=== PATIENT | female | born 1995 | race Asian ===

== ENCOUNTER 2021-12-19 02:58 | Emergency (ER) | payer MEDICAID ==
[~2021-12-19] VITALS: Ht 160 cm; Wt 90.9 kg
[2021-12-19] MEDS ORDERED: FLUT1BLS8 IH (03:11)
[2021-12-19] MEDS ORDERED: PHENAZOPYRIDINE HCL 100 MG TABLET PO ONE (03:30)
[2021-12-19] MEDS ORDERED: SULFAMETHOX/TRIMETH DS 800-160 MG/TABLET PO ONE (03:30)
[2021-12-19] MEDS ORDERED: SULF-261 PO (03:33)
[2021-12-19] MEDS ORDERED: PHEN-1103 PO (03:33)
== END 2021-12-19 04:03 | disposition home or self-care (01) ==
LOC: EMS 02:59
DX: N39.0 Urinary tract infection, site not specified (principal); F15.10 Other stimulant abuse, uncomplicated; J45.909 Unspecified asthma, uncomplicated; F17.210 Nicotine dependence, cigarettes, uncomplicated; Z87.440 Personal history of urinary (tract) infections; Z88.8 Allergy status to other drugs, medicaments and biological substances
CPT/HCPCS: 81002; 99283